=== PATIENT | female | born 1960 | race African-American/Black ===

== ENCOUNTER 2018-09-04 07:59 | Emergency (ER) | payer BC ==
[~2018-09-04] VITALS: Ht 167.6 cm; Wt 73.0 kg
[~2018-09-04 07:59] MED LIST: METF-414
[2018-09-04 10:04] VITALS: BP 145/94
== END 2018-09-04 10:05 | disposition home or self-care (01) ==
LOC: ER 08:18
DX: S39.012A Strain of muscle, fascia and tendon of lower back, initial encounter (principal); V43.52XA Car driver injured in collision with other type car in traffic accident, initial encounter; V47.5XXA Car driver injured in collision with fixed or stationary object in traffic accident, initial encounter; R03.0 Elevated blood-pressure reading, without diagnosis of hypertension; Y93.89 Activity, other specified; Y92.410 Unspecified street and highway as the place of occurrence of the external cause
CPT/HCPCS: 99283